=== PATIENT | female | born 1985 | race Caucasian/White ===

== ENCOUNTER 2024-04-28 21:11 | Emergency (ER) | payer MEDICAID, SELFPAY ==
[2024-04-28 21:13] VITALS: BMI 28.0
[2024-04-28 22:22] VITALS: BP 153/83; PULSE 90; RESP 20; TEMP 36.8; O2SAT 97
--- NOTE | 2024-04-28 22:24 | XR_ITS ---
Examination: PA lateral chest 2 views Technique: Upright PA lateral chest 2 views Exam date and time: April 28, 2024 1033 hrs. Indications: Chest pain today. Findings: Normal heart size Mild increased AP dimension chest No pneumonia or pulmonary edema Mild osteopenia Impression: No pneumonia or pulmonary edema
--- NOTE | 2024-04-28 22:25 | PD.EDRME ---
Rapid Medical Screening Exam E Arrival date/time: 04/28/24 21:11 38-year-old female who denies cardiac history reports with complaints of substernal chest pain that worsens with movement of the left arm Chief Complaint: Chest Pain Time Seen by Provider: 04/28/24 21:43 Vital signs: Vital Signs Temperature 98.3 F 04/28/24 22:22 Pulse Rate 90 04/28/24 22:22 Respiratory Rate 20 04/28/24 22:22 Blood Pressure 153/83 H 04/28/24 22:22 Pulse Oximetry (%) 97 04/28/24 22:22 Oxygen Delivery Method Room Air 04/28/24 22:22
[2024-04-28 23:00] LABS: Basophils % (Auto) 0 % (0-2.5); Eosinophils # (Auto) 0.2 Thou/mm3 (0.0-0.5); Eosinophils % (Auto) 2 % (0-10); Hematocrit 45.5 % (36.0-46.0); Hemoglobin 16.2 g/dL (12.0-16.0); Immature Granulocytes % (Auto) 1 % (0-0); Immature Granulocytes Auto 0.05 Thou/mm3 (0.00-0.00); Lymphocytes # (Auto) 2.4 Thou/mm3 (1.0-4.8); Lymphocytes % (Auto) 25 % (10-50); Mean Corpuscular HGB Conc 35.6 g/dl (31.0-37.0); Mean Corpuscular Hemoglobin 32.1 pg (25.0-35.0); Mean Corpuscular Volume 90 fL (80-100); Monocytes # (Auto) 0.9 Thou/mm3 (0.0-0.8); Monocytes % (Auto) 9 % (0-12); Neutrophils # (Auto) 6.3 Thou/mm3 (1.8-7.7); Neutrophils % (Auto) 63 % (37-80); Nucleated Red Blood Cell % 0 /100 WBC (0); Platelet Count 266 Thou/mm3 (140-440); RDW Standard Deviation 43.7 fL (36.4-46.3); Red Blood Count 5.05 Miln/mm3 (4.00-5.20)
[2024-04-28 23:06] LABS: Albumin, Serum 4.4 gm/dL (3.5-5.0); Albumin/Globulin Ratio 1.7 (1.2-2.2); Anion Gap 7 (7-16); Aspartate Amino Transferase 10 U/L (0-34); BUN/Creatinine Ratio 11 Ratio (12-20); Bilirubin,Total 0.8 mg/dL (0.3-1.2); Blood Urea Nitrogen 9 mg/dL (9-23); Calcium 9.5 mg/dL (8.3-10.6); Calcium (Corrected) 9.5 mg/dL (8.5-10.1); Carbon Dioxide 23.7 mMol/L (20.0-31.0); Chloride 103 mMol/L (98-107); Creatinine (Component) 0.8 mg/dL (0.6-1.3); Estimated Creatinine Clearance 89.6 mL/min (>60); Globulin 2.6 gm/dL (2.3-3.5); Glucose 359 mg/dL (74-106); Osmolality,Calculated 280 (275-295); Potassium 3.8 mMol/L (3.4-5.1); Sodium 134 mMol/L (136-145); Troponin I < 0.002 ng/mL (0.0-0.045); eGFR > 60 See Note
[2024-04-28 23:16] LABS: Alanine Aminotransferase 9 U/L (10-49)
[2024-04-28 23:18] LABS: HCG,Qualitative Serum Negative
[2024-04-28 23:27] LABS: Alkaline Phosphatase 61 U/L (46-116)
--- NOTE | 2024-04-28 23:54 | EDNOTE_ITS ---
ED Chest Pain RME/HPI General Chief Complaint: Chest Pain Stated Complaint: CHEST PAIN SINCE 1500 YESTERDAY Time Seen by Provider: 04/28/24 21:43 Arrival date/time: 04/28/24 21:11 38-year-old female with no cardiac history reports with complaints of substernal chest pain that worsens with movement of the left arm x 1 day. Patient denies any jaw pain or left arm pain nausea or vomiting abdominal pain shortness of breath cough congestion fever chills or weakness. Patient denies take any medications for symptoms. Limitations: no limitations RME / HPI RME / HPI narrative: 04/28/24 21:11 38-year-old female who denies cardiac history reports with complaints of substernal chest pain that worsens with movement of the left arm Related Data Previous Rx's ?Medication ?Instructions ?Recorded cyclobenzaprine 10 mg tablet 10 mg PO TID PRN muscle s pasm #30 03/25/19 tabs ibuprofen 800 mg tablet 800 mg PO TID PRN pain #30 t abs 03/25/19 Allergies Allergy/AdvReac Type Severity Reaction Status Date / Time tomato Allergy Severe RASH Verified 03/25/19 01:14 tramadol Allergy Severe ITCHING Verified 03/25/19 01:14 Review of Systems Constitutional Constitutional: Denies chills, Denies fever(s) and Denies headache(s) ENT Ears, Nose, Mouth, and Throat: Denies dizziness and Denies headache(s) Cardiovascular Cardiovascular: Reports chest pain, Denies claudication, Denies dyspnea, Denies edema and Denies syncope Respiratory Respiratory: Denies cough and Denies dyspnea Gastrointestinal Gastrointestinal: Denies nausea and Denies vomiting Musculoskeletal Musculoskeletal: Denies arthralgias and Denies back pain Integumentary/Breasts Skin/Breast: Denies erythema, Denies rash and Denies unusual bruising Neurologic Neurologic: Denies convulsions, Denies dizziness, Denies headache(s) and Denies syncope Psychiatric Psychiatric: Denies anxiety and Denies depression Hematologic/Lymphatic Hematologic/Lymphatic: Denies easy bleeding and Denies easy bruising Past Medical History Past Medical History NEUROLOGIC: Positive Neurological Disorders and Migraine (OTC); Negative Seizures CARDIAC: Positive Cardiac Disorders and Hypercholesterolemia ( CHILD); Negative Congestive Heart Failure RESPIRATORY: Positive Asthma (USES INHALOR) and Bronchitis; Negative Chronic Obstructive Pulmonary Disease (COPD), Emphysema, Pneumonia, Tuberculosis or Sleep Apnea GASTROINTESTINAL: Positive Gastrointestinal Disorders, Gall Bladder Disease and Obesity; Negative Hepatitis or Colorectal Cancer GENITOURINARY: Negative Renal Disease REPRODUCTIVE: Positive Previous Pregnancies (); Negative Breast Cancer, Endometriosis, Genital Herpes, Gonorrhea, Pelvic Inflammatory Disease, Syphilis or Uterine Prolapse MUSCULOSKELETAL: Positive Musculoskeletal Disorders (RIGHT CARPAL TUNNEL SYNDROME); Negative Bone Cancer ENDOCRINE: Negative Endocrine Disorders, Diabetes Mellitus Type 1 or Diabetes Mellitus Type 2 HEMATOLOGIC: Negative Blood Disorders, Anemia, Leukemia, Hemophilia, Thalassemia, Sickle Cell Disease or Clotting Problems OTHER HISTORY: Positive Chicken Pox; Negative Hospitalization, Autoimmune Disease, Down Syndrome, Developmental Delay, Shingles, Falls, Blood Transfusions, Blood Transfusion Reaction, Anesthesia Reactions, Organ Transplant, Chemotherapy, Radiation Therapy, Hyperbaric Therapy, MRSA, VRSA, Vancomycin-Resistant Enterococci, Human Immunodeficiency Virus (HIV), Measles, Mumps, Rubella (Tamazight Measles), Pertussis, Clostridium Difficile, Cancer, Breast Cancer, Cervical Cancer, Colorectal Cancer, Lung Cancer or Ovarian Cancer Family History FAMILY HISTORY: Positive Family Respiratory Disorders (FATHER ASTHMA) and Family Cardiac Disorders (MOTHER ND, FATHER HTN/HIGH CHOLESTEROL); Negative Family Psychiatric Problems, Family Gastrointestinal Problems, Family Cancer, Family Surgery or Family Anesthesia Reaction Surgical History SURGICAL: Positive Section (X1); Negative Organ Transplant Social History SMOKING STATUS: Current every day smoker ED Exam General Limitations: Present no limitations General appearance: Present alert and in no apparent distress Head Head exam: Present atraumatic Eye Eye exam: Present normal appearance, PERRL and EOMI ENT ENT exam: Present normal exam, normal oropharynx and mucous membranes moist Neck Neck exam: Present normal inspection, full ROM and trachea midline Chest Chest inspection: Present normal inspection and symmetric chest wall rise Respiratory Respiratory exam: Present normal lung sounds bilaterally Cardiovascular Cardiovascular exam: Present regular rate, normal rhythm and normal heart sounds Abdominal Exam Abdominal exam: Present soft and normal bowel sounds Extremities Exam Extremities exam: Present normal inspection and full ROM Back Exam Back exam: Present normal inspection and full ROM Neurological Exam Neurological exam: Present alert, oriented X3 and CN II-XII intact Psychiatric Psychiatric exam: Present normal affect and normal mood Skin Skin exam: Present warm, dry, intact and normal color Course Course Course Narrative: 38-year-old female with no cardiac history reports with complaints of substernal chest pain. Patient stressors right is without infiltrates or opacities CBC and CMP unremarkable hCG is negative troponin also negative. EKG is normal sinus rhythm with no ischemic changes or STEMI noted. Differential diagnosis includes anxiety versus chest wall strain versus noncardiac chest wall pain. Patient is stable nontoxic-appearing with stable vital signs she will be discharged home with advised to follow-up with her primary care provider in 24 to 48 hours. She is also advised to return to the emergency department if symptoms should worsen. Quality Measures none Orders Category Date Time Status EKG (ED ONLY) *Do not use* NOW Care 04/28/24 22:24 Completed EKG (ED Only) Stat Exams 04/28/24 22:24 Ordered XR chest 2V Stat Exams 04/28/24 22:24 Completed CBC Stat Lab 04/28/24 22:29 Completed CMP [Comprehensive Metabolic Panel] Stat Lab 04/28/24 22:29 Completed HCG,Qualitative Serum Stat Lab 04/28/24 22:29 Completed Troponin I Stat Lab 04/28/24 22:29 Completed Vital Signs Vital signs: Vital Signs Temperature 98.3 F 04/28/24 22:22 Pulse Rate 90 04/28/24 22:22 Respiratory Rate 20 04/28/24 22:22 Blood Pressure 153/83 H 04/28/24 22:22 Pulse Oximetry (%) 97 04/28/24 22:22 Oxygen Delivery Method Room Air 04/28/24 22:22 Procedures -ED EKG Interpretation #1: EKG Impression: Normal sinus rhythm, No acute ST-T changes and No ischemic changes Chest Pain Patient data External records reviewed:: None Clinical information provided by:: patient Social determinants that could affect healthcare access:: none Patient has the following chronic illnesses:: none How is presenting disease/condition affected by chronic disease/condition?: no chronic disease Evaluation data The following diagnostics were reviewed and interpreted by me:: lab results, radiology exam(s) and EKG tracing(s) Lab and/or radiology exams considered but not ordered:: none Interpretation Summary: EKG is negative for STEMI or ischemic changes, lab results are negative for evidence of infection or cardiac involvement in condition Medications / Prescriptions Medications or Prescriptions considered but not ordered:: none Medication administrations:: none Consultations Consultation(s) initiated? (list below): No Diagnosis Most likely diagnosis given after review of the tests above:: Noncardiac chest pain Admission Indicated Admission indicated?: not indicated Admission Request Was there a request for admission?: No Disposition Plan Disposition Plan: Discharge Discharge Attestation Discharge Attestation: The patient and all family members were given an opportunity to ask questions and understood the discharge instructions. Discharge instructions specifically effects, indications for sooner follow up or return to the emergency department, and the expected course of current diagnosis. Patient condition: Stable Discharge Plan Plan Patient Disposition: HOME (Self Care) Prescriptions/Referrals Prescriptions/Med Rec: No Action cyclobenzaprine 10 mg tablet 10 mg PO TID PRN (Reason: muscle spasm) Qty: 30 0RF ibuprofen 800 mg tablet 800 mg PO TID PRN (Reason: pain) Qty: 30 0RF Referrals: Bere Hdez PA-C [Primary Care Provider] - In 1 week Problem List Clinical Impression: Chest pain, non-cardiac Patient/Caregiver Discharge Instructions Discharge Activity: activity as tolerated Education Materials: ED Chest Pain, Noncardiac Additional Instructions: Your lab test and EKGs are normal your symptoms may be caused by other conditions such as a pulled muscle stress sometimes stomach issues you should hydrate well use [id number] medication such as Tylenol Motrin for pain and follow-up through primary care provider in 24 to 48 hours. If symptoms worsen return to the emergency Print Language: Bulgarian Stand Alone Forms: Carolann Award Info., Patient Portal Info Letter
== END 2024-04-29 00:20 | disposition home or self-care (01) ==
PROVIDERS: Physician Assistant; Emergency Provider Emergency Medicine; PCP Physician Assistant
DX: R07.89 Other chest pain (principal)
CPT/HCPCS: 36415; 71046; 80053; 84484; 84703; 85025; 93005; 99283

== ENCOUNTER → 2024-06-02 | Outpatient (CLI) | payer MEDICAID, SELFPAY ==
--- NOTE | 2024-06-02 09:20 | XR_ITS ---
Examination: Esophagram standard Fluoroscopy 29 spot fluoroscopic films of the esophagus Upright PA chest Upright soft tissue lateral neck single view Exam date and time: June 02, 2024 0937 hours INDICATIONS: Difficulty swallowing this month TECHNIQUE AND FINDINGS: Upright PA chest single view demonstrates normal heart size lungs are clear Soft tissue lateral neck demonstrates normal epiglottis satisfactory alignment cervical vertebral bodies Patient swallowed thin barium with 29 spot fluoroscopic films of the esophagus Primary peristaltic esophageal waves noted Moderate intermittent gastroesophageal reflux There is no stricture at the gastroesophageal junction No intraluminal esophageal defect IMPRESSION: Moderate intermittent gastroesophageal reflux Fluoroscopy 0.2 minute radiation dose 64.45 milligray, 29 spot fluoroscopic films of the esophagus
== END | disposition home or self-care (01) ==
LOC: CDIM 08:32 → SDIM 08:48
PROVIDERS: PCP Physician Assistant; Referring Provider Physician Assistant; Visit Provider Physician Assistant
DX: K21.9 Gastro-esophageal reflux disease without esophagitis (principal)
CPT/HCPCS: 74220; A4699